=== PATIENT | female | born 1990 | race Caucasian/White ===

== ENCOUNTER 2016-12-24 02:06 | Emergency (ER) | payer SELFPAY ==
[2016-12-24 02:19] VITALS: TEMP 98; BMI 29.1
[2016-12-24] MEDS ORDERED: MAGNESIUM SULF 50% (8.12 MEQ/2 ML-1 GM VIAL) IVPB ONE (02:54)
[2016-12-24] MEDS ORDERED: ALBUTEROL SO4 2.5/IPRATROPIUM 0.5 INH SOL 3 ML VIAL.NEB. NEB ONE ×3 (02:54→06:15)
--- NOTE | 2016-12-24 02:56 | PDOC ---
Attending Attestation - Resident Resident Name: Magnus Sorensen - ED Attending Attestation I have performed the following: I have examined & evaluated the patient, The case was reviewed & discussed with the resident, I agree w/resident's findings & plan, Exceptions are as noted - HPI HPI: 12/24/16 02:54 cough for serval weeks. Worse at night. Pt is a smoker andhas Norplant for control. - Physicial Exam PE: 12/24/16 02:55 *Physical Exam General Appearance: Yes: Appropriately Dressed. Mild distressNo: , Intoxicated HEENT: positive: EOMI, ESTHER, Normal ENT Inspection, Normal Voice, TMs Normal, Pharynx Normal. negative: Pale Conjunctivae, Photophobia, Scleral Icterus (R), Scleral Icterus (L) Neck: positive: Trachea midline, Normal Thyroid, Supple. negative: Tender, Rigid, Carotid bruit, Stridor, Lymphadenopathy (R), Lymphadenopathy (L), Thyromegaly Respiratory/Chest: positive: cosrse bilateral wheezing and rhonchi. . negative : Chest Tender, Respiratory Distress, Accessory Muscle Use, Labored Respiration , RES,Dullness Cardiovascular: positive: Regular Rhythm, Regular Rate, S1, S2. negative: Edema , JVD, Murmur, Bradycardia, Tachycardia Vascular Pulses: Dorsalis-Pedis (R): 2+, Doralis-Pedis (L): 2+ Gastrointestinal/Abdominal: positive: Normal Bowel Sounds, Flat, Soft. negative : Tender, Organomegaly, Pulsatile Mass, Increased Bowel Sounds, Decreased BS, Distended, Guarding, Rebound, Hernia, Hepatomegaly, Spleenomegaly Lymphatic: negative: Adenopathy, Tenderness Musculoskeletal: positive: Normal Inspection. negative: CVA Tenderness, Decreased Range of Motion Extremity: positive: Normal Capillary Refill, Normal Inspection, Normal Range of Motion, Pelvis Stable. negative: Tender, Pedal Edema, Swelling, Erythema Integumentary: positive: Normal Color, Dry, Warm. negative: Cyanotic, Erythema , Jaundice, Rash Neurologic: positive: media specialist II-XII NML intact, Fully Oriented, Alert, Normal Mood/ Affect, Motor Strength 5/5. negative: EOM Palsy, Facial Droop, Sensory Deficit - Medical Decision Making 12/24/16 06:01 negative CTA with discharge
[2016-12-24] MEDS ORDERED: methylPREDNISolone NA SUCC 125 MG/2 ML VIAL IVPB ONE (02:57)
--- NOTE | 2016-12-24 02:58 | PDOC ---
History of Present Illness - General Chief Complaint: Shortness of Breath Stated Complaint: SOB Time Seen by Provider: 12/24/16 02:18 - History of Present Illness Initial Comments: 12/24/16 02:57 26 yo F with no significant pmh who presents with SOB. Pt. reports increasing cough and SOB over the past 3 weeks. Endorses chest and posterior rib pain 2/2 cough and worsening of symptoms with supine positioning. Cough initially productive with greenish sputum, now clear sputum. Denies hemoptysis. Complains of diarrhea of 2 days duration. Denies blood in stool. Denies sore throat, rhinorrhea, lightheadedness, weakness, dizziness, abdominal pain. Has attempted Mucinex, Tyelenol with little to no relief. Current smoker with PPD history. Boyfriend with recent diagnosis of bacterial bronchitis 3-4 weeks ago. No recent travels, trauma, or surgery. Currently on Nexplanon contraception. No h/o DVT/PE. Past History - Past Medical History Allergies/Adverse Reactions: Allergies Allergy/AdvReac Type Severity Reaction Status Date / Time No Known Allergies Allergy Verified 12/24/16 02:25 Home Medications: Ambulatory Orders Albuterol Sulfate Inhaler - [Ventolin HFA Inhaler -] 2 inh IH Q6H #1 inh Methylprednisolone [Medrol Dose Abhishek] 4 mg PO ASDIR #21 tablet 12/24/16 Sulfamethoxazole/Trimethoprim [Bactrim *Ds*] 1 tab PO BID #20 tablet 12/24/16 - Psycho/Social/Smoking Cessation Hx Suicidal Ideation: No Smoking History: Never smoked Review of Systems - Review of Systems Comments:: 12/24/16 03:11 HEAD, EYES, EARS, NOSE AND THROAT: + Fatigue. No change in vision. No ear pain or discharge. No sore throat.- CARDIOVASCULAR: + Chest pain and shortness of breath RESPIRATORY: + cough, and wheezing. No hemoptysis. GASTROINTESTINAL: + diahrrea. No nausea, vomiting, or constipation. GENITOURINARY: No dysuria, frequency, or change in urination. MUSCULOSKELETAL: No joint or muscle swelling or pain. No neck or back pain. SKIN: No rash NEUROLOGIC: No headache, vertigo, loss of consciousness, or change in strength/ sensation. ENDOCRINE: No increased thirst. No abnormal weight change HEMATOLOGIC/LYMPHATIC: No anemia, easy bleeding, or history of blood clots. ALLERGIC/IMMUNOLOGIC: No hives or skin allergy. *Physical Exam - Vital Signs Last Vital Signs Temp Pulse Resp BP Pulse Ox 98 F 103 H 20 153/100 95 12/24/16 02:16 12/24/16 02:16 12/24/16 02:16 12/24/16 02:16 12/24/16 02:16 - Physical Exam Comments: 12/24/16 03:12 GENERAL: Awake, alert, and fully oriented, in no acute distress HEAD: No signs of trauma, normocephalic, atraumatic EYES: PERRLA, EOMI, sclera anicteric, conjunctiva clear ENT: Auricles normal inspection, hearing grossly normal, nares patent, oropharynx clear without exudates. Moist mucosa NECK: Normal ROM, supple, no lymphadenopathy, JVD, or masses LUNGS: + BL diffuse inspiratory and expiratory wheezing throughout. + RLQ rales. +Anterior and posteriorlateral chest wall ttp No distress, speaks full sentences. HEART: Regular rate and rhythm, normal S1 and S2, no murmurs, rubs or gallops, peripheral pulses normal and equal bilaterally. ABDOMEN: Soft, nontender, normoactive bowel sounds. No guarding, no rebound. No masses EXTREMITIES: Normal inspection, Normal range of motion, no edema. No clubbing or cyanosis. SKIN: Warm, Dry, normal turgor, no rashes or lesions noted. ED Treatment Course - LABORATORY CBC & Chemistry Diagram: 12/24/16 03:05 12/24/16 03:05 Medical Decision Making - Medical Decision Making 12/24/16 04:55 26 yo F with no significant pmh who presents with SOB. Pt. reports increasing cough and SOB over the past 3 weeks. APhysical exam with diffuse expiratory and inspiratory wheezing. BP 153/100, P 103. No hemoptysis, recent travels, trauma, or surgery. Currently on Nexplanon contraception. No h/o DVT/PE. + Smoking history. DDX: URI, PE, Pneumonia 12/24/16 05:10 ED Course: CBC: WBC-14.5 CMP: Unremarkable CXR: Unremarkable D-dimer - 341 12/24/16 05:33 CTA Chest: Absent PE. Bibasilar Atelectasis D/C with *DC/Admit/Observation/Transfer Diagnosis at time of Disposition: COPD (chronic obstructive pulmonary disease) with acute bronchitis - Discharge Dispostion Disposition: HOME Condition at time of disposition: Improved Admit: No - Prescriptions Prescriptions: Sulfamethoxazole/Trimethoprim [Bactrim *Ds*] 1 tab PO BID #20 tablet Methylprednisolone [Medrol Dose Abhishek] 4 mg PO ASDIR #21 tablet Albuterol Sulfate Inhaler - [Ventolin HFA Inhaler -] 2 inh IH Q6H #1 inh - Patient Instructions Printed Discharge Instructions: DI for Chronic Obstructive Pulmonary Disease Additional Instructions: Please return to ED if you experience fevers/chills, blood in sputum, chest pain or worsening symptoms. Please use Bactrim, Ventolin, and Medrol as reccomened.
[2016-12-24] MEDS ORDERED: MAGNESIUM SULF 50% (8.12 MEQ/2 ML-1 GM VIAL) ONE (03:02)
[2016-12-24] MEDS ORDERED: methylPREDNISolone NA SUCC 125 MG/2 ML VIAL ONE (03:03)
[2016-12-24 03:16] LABS: BASOPHIL 0.5 % (0-2.0); EOSINOPHIL 4.9 % (0-4.5); MCH 28.3 pg (25.7-33.7); MCHC 33.8 g/dl (32.0-36.0); MEAN CELL VOLUME 83.8 fl (80-96); MEAN PLT VOLUME 7.4 fl (7.5-11.1); NEUTROPHILS 70.5 % (42.8-82.8); PLATELET COUNT 359 K/MM3 (134-434); RDW 12.9 % (11.6-15.6); WHITE BLOOD COUNT 14.5 K/mm3 (4.0-10.0)
[2016-12-24 03:18] LABS: URINE APPEARANCE CLEAR; URINE BILIRUBIN NEGATIVE (NEGATIVE); URINE BLOOD 2+ (NEGATIVE); URINE COLOR LTYELLOW; URINE GLUCOSE (UA) NEGATIVE (NEGATIVE); URINE KETONE NEGATIVE (NEGATIVE); URINE LEUK ESTERASE NEGATIVE (NEGATIVE); URINE NITRITE NEGATIVE (NEGATIVE); URINE PROTEIN NEGATIVE (NEGATIVE); URINE UROBILINOGEN NEGATIVE mg/dL (0.2-1.0)
[2016-12-24 03:26] LABS: URINE RBC 1 /hpf (0-3)
[2016-12-24 03:43] LABS: ANION GAP 5 (8-16); BILIRUBIN,TOTAL 0.5 mg/dL (0.2-1.0); CALCIUM 8.9 mg/dL (8.5-10.1); CO2 26 mmol/L (21-32); CREATININE 0.6 mg/dL (0.55-1.02); GLUCOSE,RANDOM 114 mg/dL (74-106); SGOT/AST 19 U/L (15-37); SGPT/ALT 32 U/L (12-78); TOT PROT 7.7 g/dl (6.4-8.2)
[2016-12-24 03:44] LABS: ALK PHOS 88 U/L (45-117)
[2016-12-24] MEDS ORDERED: ALBUTEROL SO4 2.5/IPRATROPIUM 0.5 INH SOL 3 ML VIAL.NEB. NEB STA (04:50)
[2016-12-24] MEDS ORDERED: SULFAMETHOXAZOLE/TRIMETHOPRIM 800MG/160MG D.S. TABLET PO ONE (05:59)
[2016-12-24] MEDS ORDERED: SULFAMETHOXAZOLE/TRIMETHOPRIM 800MG/160MG D.S. TABLET ONE (06:15)
[2016-12-24 06:20] VITALS: BP 138/82; PULSE 94
== END 2016-12-24 06:21 | disposition home or self-care (01) ==
LOC: JER 02:06
PROC: 3E0F7GC Introduction of Other Therapeutic Substance into Respiratory Tract, Via Natural or Artificial Opening (ICD-10-PCS; principal; 2016-12-24)
PROC: 3E033GC Introduction of Other Therapeutic Substance into Peripheral Vein, Percutaneous Approach (ICD-10-PCS; 2016-12-24)
DX: J44.9 Chronic obstructive pulmonary disease, unspecified (principal)
CPT/HCPCS: 36415; 71010-TC; 71275-TC; 80053; 81003; 81015; 84703; 85025; 85379; 99282-25